=== PATIENT | female | born 1930 | race Caucasian/White ===

== ENCOUNTER 2016-06-15 18:46 | Inpatient (IN) ==
--- NOTE | 2016-06-15 18:59 | Emergency Department Note ---
START Narrative - START START: I examined this patient and my medical decision-making was reviewed with the METER READING CLERK/PA/Advanced Practice Nurse/Resident Physician. I agree with the documented findings, disposition and treatment plan as described except to the extent set forth below. ED attending note: Patient seen with emergency medicine resident Dr. Pate. We independently evaluated the patient. We independently had [id number] contact with the patient. Please see a copy of his note for details of the history and physical, evaluation, management and disposition of this emergency Department patient. Briefly: A 86-year-old female with history of right hip replacement by EMS after mechanical fall tripped over a log of table fell and hit her left side of the hip and her head. No loss of consciousness. GCS 15. Full range of motion of her neck. Has discomfort on the lateral aspect of her left thigh. Patient getting x-rays and analgesics. Disposition pending. Patient stable.
[2016-06-15] MEDS ORDERED: Acetaminophen 325 MG TABLET PO ONE (19:03)
[2016-06-15] MEDS ORDERED: *HR* HYDROcodone/Acet 5/325 mg TABLET PO ONE (20:24)
[2016-06-15] MEDS ORDERED: 0.9 % Sodium Chloride 1,000 ML IVC ONE (20:37)
--- NOTE | 2016-06-15 20:41 | Emergency Department Note ---
Disposition Clinical Impression: Closed left hip fracture Qualifiers: Encounter type: initial encounter Qualified Code(s): S72.002A - Fracture of unspecified part of neck of left femur, initial encounter for closed fracture Disposition: Admitted As Inpatient Condition: Fair Referrals: NO,PCP [Primary Care Provider] - Forms: ED Satisfaction Letter Time of Disposition: 20:51 Fall HPI - General Chief Complaint: ED Fall Stated Complaint: "fall, no loc, lt leg pain" Source: EMS Nursing Notes Reviewed: Yes Vital Signs Reviewed: Yes - History of Present Illness HPI Narrative: A 6-year-old female presents with left hip pain secondary to ground level fall was mechanical in nature for 45 minutes ago. Patient tripped on table leg and fell backwards onto her left hip. Patient denies loss of consciousness or head injury. Patient is not on anticoagulants. Patient has history of right hip replacement patient has not fallen in 2 years - Related Data Allergies Allergy/AdvReac Type Severity Reaction Status Date / Time aspirin AdvReac Rash Verified 01/26/16 15:16 All systems ED: reviewed and negative except as stated. Constitutional: Denies: fever, chills ENT ED: Denies: congestion Cardiovascular: Denies: chest pain, palpitations Respiratory: Denies: cough, dyspnea, wheezes Gastrointestinal: Denies: abdominal pain, nausea, vomiting, diarrhea Genitourinary: Denies: urgency, dysuria, frequency Musculoskeletal: Denies: back pain, neck pain Fall PMH - Past Medical History Medical history: Reports: arthritis Psychiatric history: Reports: depression - Social History Smoking Status: Former smoker Alcohol use: Reports: none Drug use: Reports: none Physical Exam Vital Signs Temperature 97.5 F L 06/15/16 18:55 Pulse Rate 70 06/15/16 18:55 Respiratory Rate 16 06/15/16 18:55 Blood Pressure 173/61 06/15/16 18:55 O2 Sat by Pulse Oximetry 92 L 06/15/16 18:55 Temperature 97.5 F L 06/15/16 18:55 Pulse Rate 74 06/15/16 19:14 Respiratory Rate 16 06/15/16 19:14 Blood Pressure 171/74 06/15/16 19:14 O2 Sat by Pulse Oximetry 95 06/15/16 19:14 Oxygen Delivery Oxygen Delivery Nasal Cannula -General Appearance: Patient is a 86-year-old female who is alert and oriented 3 and in no acute distress. Patient lying in bed comfortable. -Neurological exam: Cranial nerves II-12 intact, no focal deficits observed, strength equal 5/5 bilaterally in upper and lower extremities, - Head Head exam: atraumatic, normocephalic, normal inspection - Eye Eye exam: Present: normal appearance, PERRL, EOMI, negative for scleral icterus negative for conjunctival pallor - ENT ENT exam: normal exam, normal oropharynx, mucous membranes moist - Neck Neck exam: Present: normal inspection, full ROM, trachea midline, negative JVD - Chest Chest inspection: Present: Patient has bilateral equal rise and fall of chest wall. Non-tender to palpation. - Respiratory Respiratory exam: Clear to auscultation bilaterally without wheezes rales or rhonchi Cardiovascular Cardiovascular exam: Present: regular rate, normal rhythm, normal heart sounds, without murmurs rubs or gallops. - Abdominal Exam Abdominal exam: Present: soft, nondistended, Non-Tender light and deep palpation in all quadrants. Bowel sounds normoactive throughout all 4 quadrants. Negative for hyper or hyperresonance. - Extremities Exam Extremities exam: Patient has shortening and lateral rotation of the left extremity. Pulses intact dorsal pedal and popliteal Bilaterally tenderness to palpation anterior to the patient's hip and discomfort with movement - Back Exam Back exam: Present: normal inspection - Psychiatric Psychiatric exam: Present: normal affect, normal mood - Skin Skin exam: Present: warm, dry, intact, normal color - General Limitations: no limitations General appearance: alert Course Course Narrative: Patient seen and examined. Patient refuses pain medication other than Tylenol. 650 mg ordered - Reevaluation(s) Reevaluation #1: Patient returned from x-ray. Patient's complaining of more pain. Patient will except stronger pain medication at this time. Oxycodone 5 325 ordered Time: 19:30 - Consultations Consultation #1: Anju requests patient be admitted to medicine and he will see patient in the morning. Time: 20:30 Consultation #2: Dr. Rincon accepted for admission Time: 20:40 Vital Signs Temperature 97.5 F L 06/15/16 18:55 Pulse Rate 70 06/15/16 18:55 Respiratory Rate 16 06/15/16 18:55 Blood Pressure 173/61 06/15/16 18:55 O2 Sat by Pulse Oximetry 92 L 06/15/16 18:55 Temperature 97.5 F L 06/15/16 18:55 Pulse Rate 74 06/15/16 19:14 Respiratory Rate 16 06/15/16 19:14 Blood Pressure 171/74 06/15/16 19:14 O2 Sat by Pulse Oximetry 95 06/15/16 19:14 Oxygen Delivery Oxygen Delivery Nasal Cannula Fall - MDM Narrative Medical decision making narrative: Ms. Carvalho is an 86-year-old female who had a ground-level fall mechanical in nature secondary to tripping on the table leg. Patient's condition concerning for hip fracture. Femur X-Ray 06/15/16 19:01 IMPRESSION: Acute moderately displaced left subcapital femoral neck fracture. D/ / Romain Muller MD / Romain Muller MD Interpreting Provider: Romain Muller MD Pelvis X-Ray 06/15/16 19:01 IMPRESSION: Acute moderately displaced left subcapital femoral neck fracture. D/ / Romain Muller MD / Romain Muller MD Interpreting Provider: Romain Muller MD Patient has a hip fracture per radiology. Verified after reviewing image. Dr. Rene of orthopedics was consult sitting and he states to admit to medicine and he will see the patient in the morning. Patient is admitted to medicine and accepted by Dr. Rincon.
[2016-06-15 21:02] LABS: Basophils % 0.1 %; Eosinophils # 0.1 K/mcL (0.0-0.6); Eosinophils % 0.7 %; Hematocrit 25.6 % (35.3-44.9); Hemoglobin 8.2 g/dL (11.5-15.4); Immature Granulocytes % 0.7 % (0-4); Lymphocytes # 0.5 K/mcL (0.6-4.6); Lymphocytes % 4.2 %; Mean Corpuscular Hemoglobin 33.1 pg (28.0-33.3); Mean Corpuscular Volume 103.2 fL (83.0-100.0); Mean Platelet Volume 10.2 fL (9.4-12.4); Monocytes # 0.3 K/mcL (0.0-1.3); Monocytes % 2.7 %; Platelet Count 227 K/mcL (140-400); Red Blood Count 2.48 M/mcL (3.82-4.97); Red Cell Distribution Width 12.9 % (11.5-14.5); Segmented Neutrophils % 91.6 %
[2016-06-15 21:15] LABS: Calcium 8.8 mg/dL (8.6-10.8); Potassium 4.3 mEq/L (3.5-4.5)
[2016-06-15] MEDS ORDERED: *HR* Morphine 2 MG/ML SYRINGE IVP ONE (21:54)
[2016-06-15] MEDS ORDERED: *HR* Morphine 2 MG/ML SYRINGE IVP PRN ×2 (21:58→22:31)
[2016-06-15] MEDS ORDERED: *HR* HYDROcodone/Acet 5/325 mg TABLET PO PRN (21:58)
[2016-06-15] MEDS ORDERED: Ondansetron ODT 4 MG TAB.RAPDIS SL PRN (21:58)
[2016-06-15] MEDS ORDERED: Acetaminophen 325 MG TABLET PO PRN (21:58)
[2016-06-15] MEDS ORDERED: Naloxone 0.4 MG/ML INJ IVP PRN (21:58)
[2016-06-15] MEDS ORDERED: 0.9 % Sodium Chloride 1,000 ML IVC SCH (22:00)
[2016-06-15] MEDS ORDERED: *HR* HYDROmorphone (PF) 1 MG/ML SYRINGE IVP PRN (22:29)
--- NOTE | 2016-06-15 22:55 | Internal Med History&Physical ---
<Cammie Onofre - Last Filed: 06/15/16 22:41> Date of Encounter: 06/15/16 Time of Encounter: 22:41 Assessment and Plan (1) Closed left hip fracture Current visit: Yes Status: Acute Patient fell at home and has left hip pain, unable to walk. Xray revealed left femoral neck fracture. Dr. eRne consulted and will evaluate in the morning. NPO after midnight. Gentle fluid hydration 0.9NS at 60mL/hr EKG, echo ordered for pre-op clearance. Qualifiers: Encounter type: initial encounter Qualified Code(s): S72.002A - Fracture of unspecified part of neck of left femur, initial encounter for closed fracture (2) Hypertension Current visit: Yes Status: Acute Patient with history of hypertension. She does not know her medications or doses, but reports she took bother her morning and evening doses already today. She will have her son-in-law bring her medications in the morning. Once pain is controlled, will reassess blood pressure and assess the need for PRN blood pressure control. 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 She does not know her medications or doses, but reports she took bother morning and evening doses today and will have her son-in-law bring her medications in the morning. (4) History of ID (myocardial infarction) Current visit: Yes Status: Acute Patient reports history of ID, denies stent placement. Will get echocardiogram in the morning for pre-op evaluation (5) CKD (chronic kidney disease) Current visit: Yes Status: Acute Patient with history of CKD and appears to be at baseline with Creatinine of 1.53. Gentle fluids overnight with 0.9NS at 60mL/hr recheck labs in the morning. Qualifiers: Chronic kidney disease stage: stage 3 (moderate) Qualified Code(s): N18.3 - Chronic kidney disease, stage 3 (moderate) (6) Anemia Current visit: Yes Status: Acute Hgb 8.2, appears to be at baseline. Recheck labs in the morning. Qualifiers: Anemia type: iron deficiency Iron deficiency anemia type: unspecified iron deficiency Qualified Code(s): D50.9 - Iron deficiency anemia, unspecified (7) DVT prophylaxis Current visit: Yes Status: Acute calf-compressors Heparin 5,000u SQ BID Internal Medicine - H&P: HPI Chief complaint: Fall Admitted From: Emergency Dept Plans for Post Hospital Care: Transfer [facility] Facility History of present illness: Ms. Carvalho is a 86 year old female with hypertension, CKD, anemia, seizure disorder and history of ID, who was brought to the emergency department by the squelizabeth today haver suffering a fall at home. She reports she was in her kitchen when she tripped over the leg of the table and fell on her left side. She could not get up and she could not bear weight. Pain is described as severe and constant since her fall, somewhat relieved by pain medication. Xrays in the ED revealed a left femoral neck fracture. WBC count was mildly elevated to 12.0, likely reactive. She is anemic with Hgb of 8.2, but this is consistent with her baseline hgb. Creatinine of 1.53 also appears consistent with her baseline and consistent with her history of CKD. Orthopedic surgery was consulted and will see her tomorrow and likely proceed with surgery. On exam, patient is alert and oriented, though she is a poor historian and does not know what medications she takes. She gets her medications set up in boxes, and reports she did take her morning and evening doses today. She reports her son- in-law will bring her medications in the morning. Her left leg is shortened and externally rotated and the right hip is tender to palpation. Lungs are clear to auscultation bilaterally and heart has regular rate and rhythm. Past Med Surg Social Fam HX - Past Medical History Medical history: arthritis, hypertension, myocardial infarction, renal disease, seizures Psychiatric history: depression - Past Surgical History Surgical History: hip replacement (right hip 2014) - Social History Smoking Status: Former smoker Smokeless Tobacco Status: No Alcohol use: none Drug use: none - Family History Mother Living Status: Age at : 97 Father Living Status: Age at : 87 Cause of : aneurysm Daughter Hx Family Cancer: Yes Internal Medicine - H&P: Meds Clopidogrel [Plavix] 75 mg PO DAILY 06/15/16 [History] Allergies aspirin Adverse Reaction (Verified 01/26/16 15:16) Rash All Systems PM: A 10-system review of systems was performed and is negative for pertinent findings except as documented above in the HPI. - Constitutional Constitutional: no chills, no fever(s), no night sweats - EENT Eyes: no change in vision, no discharge, no pain, no photophobia Ears: no ear discharge, no ear pain, no tinnitus Nose, mouth and throat: no dysphagia, no nasal discharge, no neck pain, no sore throat - Cardiovascular Cardiovascular ROS IM: no chest pain, no diaphoresis, no dyspnea, no lightheadedness, no palpitations, no syncope - Respiratory Respiratory: no cough, no dyspnea, no wheezing, no excessive phlegm production - Gastrointestinal Gastrointestinal: no abdominal pain, no diarrhea, no hematemesis, no hematochezia, no melena, no nausea, no vomiting - Genitourinary Genitourinary: no change in urinary stream, no dysuria, no flank pain, no hematuria - Musculoskeletal Musculoskeletal ROS IM: limited range of motion (left hip) - Integumentary Integumentary IM: no rash, no unusual bruising - Neurological Neurological ROS: no confusion, no convulsions, no focal weakness, no numbness, no tingling, no tremor(s) - Hematologic/Lymphatic Hematologic/Lymphatic: no easy bruising - Constitutional Vitals: Temp Pulse Resp BP Pulse Ox 98.5 F 79 18 184/85 98 06/15/16 22:06 06/15/16 22:06 06/15/16 22:06 06/15/16 22:06 06/15/16 22:06 General appearance: Present: A&O X 3, no acute distress, answers questions appropriately - Head Head exam: Present: atraumatic, normocephalic - Eye Eye exam: Present: PERRL, conjuntiva pink, sclera anicteric Pupils: Present: PERRL - Neck Neck exam general surgery: Present: supple, trachea midline. Absent: lymphadenopathy - Respiratory Respiratory exam: Present: CTAB. Absent: accessory muscle use, rales, rhonchi, wheezes - Cardiovascular Cardiovascular exam: Present: RRR, +S1, +S2. Absent: diastolic murmur, gallop, rubs, systolic murmur - GI/Abdominal GI/Abdominal exam: Present: normal bowel sounds, soft, no peritoneal signs. Absent: distended, tenderness - Extremities Exam Extremities exam: Present: normal capillary refill, tenderness (left hip), warm , radial pulses palpable and symetrical. Absent: calf tenderness, cyanotic, pedal edema Additional comments: Right leg shortened and externally rotated. Normal capillary refill, neurovascularly intact. - Neurological Exam Neurological exam: Present: CN II-XII intact, oriented X3, no focal deficits. Absent: pronater drift, facial droop, speech deficit - Skin Skin exam: Present: dry, intact Internal Med - H&P Results - Labs CBC & Chem 7: 06/15/16 20:59 06/15/16 20:59 <Bela Rincon - Last Filed: 06/16/16 04:24> Date of Encounter: 06/15/16 Assessment and Plan (1) Vitamin B12 deficiency Current visit: Yes Status: Acute Pt had Vitamin B12 level of 203, on 05/27/16. I am unsure, if the pt is on replenishment (no home meds listed). Start supplements (2) Macrocytic anemia with vitamin B12 deficiency Current visit: Yes Status: Chronic Vitamin B12 supplements. Type and screen for surgery Internal Medicine - H&P: HPI History of present illness: Ms. Carvalho is a 86 year old female All Systems PM: A 10-system review of systems was performed and is negative for pertinent findings except as documented above in the HPI. - Constitutional Vitals: Temp Pulse Resp BP Pulse Ox 98.2 F 71 17 171/81 98 06/16/16 03:54 06/16/16 03:54 06/16/16 03:54 06/16/16 03:54 06/16/16 03:54 Internal Med - H&P Results - Labs CBC & Chem 7: 06/15/16 20:59 06/15/16 20:59 - Attending Attestation I examined this patient and my medical decision-making was reviewed with the APPLICATION SPEC/PA/Advanced Practice Nurse/Resident Physician. I agree with the documented findings, disposition and treatment plan as described except to the extent set forth below. I have personally evaluated the pt and discussed the details with POLICE ACADEMY PROGRAM COORDINATOR. 86 Y/F, with prior CAD / ID 2 yrs ago. CKD, vitamin B12 deificiency / macrocytic anemia. Pt had a mechanical fall in the kitchen and has severe pain in the left hip. X-ray of the pelvis showed moderately displaced subcapital femoral neck fracture. ER physician discussed with Dr. Carlton, who recommended admission to the hospitalist service. O/E: systolic murmur. Tenderness at the left hip. Assessment/ Plan: Left hip fracture: Analgesia with dilaudid. Will get echo cardiogram for presurgical eval . Ortho consult. CAD: Hold Plavix. Her home meds list is not available. If the pt is on betablockers, will need to continue. Macrocytic anemia: H&H at her recent baseline. Type and screen transfuse per ortho. I am not certain, if the pt is on Vit B12 supplements. Will give Vit B12 IM and start PO. CKD stage 3: creat at baseline.
[2016-06-15] MEDS ORDERED: Cyanocobalamin (B-12) 1,000 MCG/ML VIAL IM ONE (23:36)
[2016-06-16] MEDS: 0.9 % Sodium Chloride 1,000 ML IVC SCH ×2 (00:09→09:11)
[2016-06-16 05:18] LABS: Basophils % 0.2 %; Eosinophils % 0.1 %; Hematocrit 25.1 % (35.3-44.9); Hemoglobin 7.8 g/dL (11.5-15.4); Immature Granulocytes % 0.6 % (0-4); Lymphocytes # 0.5 K/mcL (0.6-4.6); Lymphocytes % 4.1 %; Mean Corpuscular HGB Conc 31.1 g/dL (31.6-35.5); Mean Corpuscular Hemoglobin 32.2 pg (28.0-33.3); Mean Corpuscular Volume 103.7 fL (83.0-100.0); Mean Platelet Volume 10.4 fL (9.4-12.4); Monocytes # 0.5 K/mcL (0.0-1.3); Monocytes % 3.6 %; Neutrophils # 11.6 K/mcL (1.6-8.9); Platelet Count 183 K/mcL (140-400); Red Blood Count 2.42 M/mcL (3.82-4.97); Segmented Neutrophils % 91.4 %
[2016-06-16] MEDS: *HR* Heparin 5,000 UNIT/ML VIAL SQ SCH ×2 (05:26→20:33)
[2016-06-16 05:31] LABS: Calcium 8.3 mg/dL (8.6-10.8); Potassium 3.9 mEq/L (3.5-4.5)
[2016-06-16] MEDS ORDERED: *HR* Metoprolol 5 MG/5 ML VIAL IVP ONE (05:42)
[2016-06-16] MEDS ORDERED: *HR* Promethazine 25 MG/ML VIAL IVP PRN (11:04)
[2016-06-16] MEDS ORDERED: *HR* HYDROmorphone (PF) 1 MG/ML SYRINGE IVP PRN (11:04)
--- NOTE | 2016-06-16 11:04 | Anesthesia Evaluation PreOp ---
Date of Encounter: 06/16/16 Time of Encounter: 11:03 - Past History Planned Operation: L hip hemiarthroplasty (delayed to 06/17 for transfusion Cardiac History: [place], Other (echo 2015: Impressions: LVEF 60-65%; subtle wall motion abnormality with normal systolic function. Normal left ventricular size and systolic function. There is evidence of mild diastolic dysfunction of the left ventricle. Moderately enlarged left atrial size. Normal right atrial size. Normal right ventricular size and function. Sclerotic aortic valve. Mild tricuspid regurgitation. Estimated RVSP was 31 mmHg. No pulmonary hypertension. The IVC is not dilated.) Pulmonary History: Denies Any Significant HX SAFEKEEPING CLERK History: Seizures (absence) Other Medical History: Renal (ckd) Anesthesia History: No Prior Anesthetic Complications, Past Anesthesia Alcohol Use: none Drug use: none Medications and Allergies Clopidogrel [Plavix] 75 mg PO DAILY 06/15/16 [History] Aspirin PO DAILY 06/16/16 [History] Allergies aspirin Adverse Reaction (Verified 01/26/16 15:16) Rash - Meds/Allergy Pre-op Review Medications Reviewed: Yes Allergies Reviewed: Yes Beta Blockers on Current Med List: No Anesthesia Results - Labs 06/16/16 04:45 06/16/16 04:45 - Imaging EKG: pending Anesthesia Exam Height: 1.68 Weight: 53 NPO (# of Hours): >8 Anesthesia Assess/Plan ASA Score: 3 Modified Mason Scale for Level of Consciousness: Cooperative, oriented, and tranquil Anesthetic Plan: General Monitoring Plan: Standard Monitors Recovery Plan: PACU
--- NOTE | 2016-06-16 12:07 | Orthopedic Consult Note ---
Date of Encounter: 06/16/16 Time of Encounter: 12:05 Assessment and Plan (1) Closed left hip fracture Current Visit: Yes Status: Acute The patient is a displaced left hip femoral neck fracture. Plan: Discussed with patient that she will require a left hip arthroplasty. The risks, benefits alternatives were discussed patient. The patient has a significant past history of [place],, and currently has anemia. The patient requires 2 units of packed red blood cells transfusion. An echo is also pending. Patient's surgery will be moved to tomorrow, after she has been optimized and fully cleared. Qualifiers: Encounter type: initial encounter Qualified Code(s): S72.002A - Fracture of unspecified part of neck of left femur, initial encounter for closed fracture History of Present Illness Chief complaint: Left hip pain HPI: Ms. Carvalho is a 86 year old female fell at [employer] yesterday evening, she states she lost her balance and fell over. She was brought to the emergency room, and was diagnosed with a left hip femoral neck fracture. The patient reports she has been having gait disturbance were well now. She did not get dizzy prior to her fall and no loss consciousness afterwards. The patient denies any chest pain or shortness of breath. Past Med Surg Social Fam HX - Past Medical History Medical history: arthritis, hypertension, myocardial infarction, renal disease, seizures Psychiatric history: depression - Past Surgical History Surgical History: hip replacement - Social History Smoking Status: Former smoker Smokeless Tobacco Status: No Alcohol use: none Drug use: none - Family History Mother Living Status: Age at : 97 Father Living Status: Age at : 87 Cause of : aneurysm Daughter Living Status: Still Living Hx Family Respiratory Disorders: Yes Hx Family Cancer: Yes Hx Family Neurologic Disorders: Yes Hx Family Medical Disorders: Yes Medications and Allergies Clopidogrel [Plavix] 75 mg PO DAILY 06/15/16 [History] Acetaminophen [Tylenol] 325 mg PO Q6HR PRN 06/16/16 [History] Atorvastatin Calcium 80 mg PO HS 06/16/16 [History] Carvedilol [Coreg] 6.25 mg PO BID 06/16/16 [History] Cholecalciferol (Vitamin D3) [Vitamin D] 2,000 unit PO DAILY 06/16/16 [History] Dicyclomine [Bentyl] 10 mg PO QID 06/16/16 [History] Ferrous Sulfate [Iron] 325 mg PO BID 06/16/16 [History] Fluticasone Propionate Nasal [Flonase] 1 spray NS DAILY PRN 06/16/16 [History] Lamotrigine [Lamictal] 100 mg PO BID 06/16/16 [History] Lisinopril [Lisinopril] 2.5 mg PO DAILY 06/16/16 [History] Loratadine [Allergy Relief] 10 mg PO DAILY PRN 06/16/16 [History] Paroxetine [Paxil] 20 mg PO DAILY 06/16/16 [History] Tramadol HCl [Ultram] 50 mg PO Q6H PRN 06/16/16 [History] Allergies aspirin Adverse Reaction (Verified 06/16/16 11:53) Rash All Systems Reviewed: A 10-system review of systems was performed and is negative for pertinent findings except as documented above in the HPI. Physical Exam - Constitutional Vitals: Temp Pulse Resp BP Pulse Ox 98.5 F 71 16 159/86 94 L 06/16/16 06:20 06/16/16 06:20 06/16/16 06:20 06/16/16 06:20 06/16/16 06:20 - Fracture left hip Appearance: other (Left lower extremity is shortened, she is tender at the groin area) Compartments: soft Distal extremity neurovascularly intact: Yes Proximal joint involvement: Yes Distal joint involvement: No Other injury: muscle injury: no, tendon injury: no, ligament injury: no, vascular injury: no, nerve injury: no Results - Labs Result Diagrams: 06/16/16 04:45 06/16/16 04:45 Labs: Abnormal lab results WBC 12.7 K/mcL (4.3-11.1) H 06/16/16 04:45 RBC 2.42 M/mcL (3.82-4.97) L 06/16/16 04:45 Hgb 7.8 g/dL (11.5-15.4) L 06/16/16 04:45 Hct 25.1 % (35.3-44.9) L 06/16/16 04:45 MCV 103.7 fL (83.0-100.0) H 06/16/16 04:45 MCHC 31.1 g/dL (31.6-35.5) L 06/16/16 04:45 Neutrophils # 11.6 K/mcL (1.6-8.9) H 06/16/16 04:45 Lymphocytes # 0.5 K/mcL (0.6-4.6) L 06/16/16 04:45 BUN 27 mg/dL (7-20) H 06/16/16 04:45 Creatinine 1.27 mg/dL (0.57-1.11) H 06/16/16 04:45 Est GFR ( Amer) 48 (> 60) L 06/16/16 04:45 Est GFR (Non-Af Amer) 40 (> 60) L 06/16/16 04:45 Glucose 150 mg/dL (70-99) H 06/16/16 04:45 Calcium 8.3 mg/dL (8.6-10.8) L 06/16/16 04:45 H & H 06/16/16 Range/Units 04:45 Hgb 7.8 L (11.5-15.4) g/dL Hct 25.1 L (35.3-44.9) % All other labs normal. - Diagnostic results Hip x-ray: image reviewed (Left hip displaced femoral neck fracture, right hemiarthroplasty) Consult Discharge Plan - Plan Referrals: Isrrael Quintero MD [Primary Care Provider] -
[2016-06-16] MEDS: 0.9 % Sodium Chloride 250 ML IVC PRN ×2 (12:58→18:48)
[2016-06-16 13:30] LABS: Prothrombin Time 11.3 Seconds (9.4-12.1)
[2016-06-16 13:33] LABS: Activated Partial Thrombo Time 25.5 Seconds (26.0-36.0)
--- NOTE | 2016-06-16 15:09 | ECHO - Doppler Report ---
Echocardiogram Name: Romina Carvalho Date of Study: 06/16/2016 Date: 1930 Ht: 66.0 in Medical Record#: [id number] Age: 86 Wt: 117.0 lb Gender: Female BSA: 1.59 Order #: [id number] Location: [facility] Room #: [facility] Reading Physician: Allen Murphy MD, [facility] Tv News Director: KEN ArreolaT, [facility] Ordering Physician: Cammie Onofre, FEE CLERK Primary Physician: Isrrael Quintero M.D. Indications: Preop Impressions: Normal left ventricular size and systolic function, LVEF 65%. Normal right ventricular size and function. Mildly dilated left atrium. Moderate tricuspid regurgitation. Mild-moderate pulmonary hypertension. Estimated RVSP = 49 mmHg. Left Ventricular Wall Motion: Rest Echo Findings All wall segments showed normal motion. Findings: Study Quality * Technically adequate exam. ECG Findings * Normal sinus rhythm. Left Ventricle * Normal left ventricular size and systolic function, LVEF 65%. * Normal LV wall thickness. * Indeterminate diastolic function. Right Ventricle * Normal right ventricular size and function. Left Atrium * Mildly dilated left atrium. Right Atrium * Normal right atrial size. Interatrial Septum * Mildly aneurysmal interatrial septum. Aorta * Normally sized aortic root. Pericardium * There is no pericardial effusion present. IVC * Normal IVC dimensions and inspiratory collapse. Aortic Valve * Trileaflet aortic valve. * Moderately sclerotic aortic valve leaflets. * No aortic stenosis. * No aortic regurgitation. Mitral Valve * Mild mitral annular calcification * No mitral stenosis. * Trace mitral regurgitation. Tricuspid Valve * Normal tricuspid valve structure. * No tricuspid stenosis. * Moderate tricuspid regurgitation. * Mild-moderate pulmonary hypertension. Estimated RVSP = 49 mmHg. Pulmonic Valve * Pulmonic valve not well visualized. * No pulmonic stenosis. * Trace pulmonic regurgitation. History Hypertension Hypercholesteremia 11/18/2014 a Previous Echo was performed. Measurements: BP: 159/ 86 2D Normal Values RVIDd: 2.50 cm IVSd: .90 cm 0.6 - 1.0 cm LVIDd: 3.80 cm 3.7 - 5.6 cm LVPWd: 1.00 cm 0.6 - 1.1 cm LVIDs: 2.50 cm 1.5 - 3.6 cm AO: 3.00 cm < 4.0 cm %FS: 34.20 cm >25 % LA volume: 55 Mitral Valve Peak E:1.05 m/sec Peak A:1.00 m/sec E/A Ratio:1.1 Tricuspid Valve TV Regurg Peak Grad: 46.00mmHg TV Regurg Peak Rey: 3.39m/sec Updated by Allen Murphy MD, [facility] on 06/16/2016 3:03:41 PM electronically signed on 06/16/2016 3:04:40 PM with status of Final Wall Motion Narayan: 1=Normal, 2=Hypokinesis, 3=Akinesis, 4=Dyskinesis, 5=Aneurysmal, 6=Hyperkinetic, X=Not Visualized (Blank)=Missing
--- NOTE | 2016-06-16 16:43 | Internal Med Progress Note ---
Date of Encounter: 06/16/16 Time of Encounter: 14:00 - Assessment and plan (1) Closed left hip fracture Current Visit: Yes Status: Acute Assessment and plan: X-ray of the left hip revealed left femoral neck fracture. Orthopedic service is following. Plan for surgical intervention tomorrow. Continue IV fluid hydration, pain control with opiates. Qualifiers: Encounter type: initial encounter Qualified Code(s): S72.002A - Fracture of unspecified part of neck of left femur, initial encounter for closed fracture (2) Acute blood loss anemia Current Visit: Yes Status: Acute Assessment and plan: Hemoglobin is 7.8. Likely secondary to blood loss from hip fracture. Transfuse 2 units of packed red blood cells. No external bleeding. Close monitoring. Hemodynamically stable. (3) CKD (chronic kidney disease) Current Visit: Yes Status: Acute Assessment and plan: CKD 3. At baseline. Continue to monitor. Avoid nephrotoxins as possible. Qualifiers: Chronic kidney disease stage: stage 3 (moderate) Qualified Code(s): N18.3 - Chronic kidney disease, stage 3 (moderate) (4) Hypertension Current Visit: Yes Status: Acute Assessment and plan: Control. Holding home dose of lisinopril. Qualifiers: Hypertension type: essential hypertension Qualified Code(s): I10 - Essential (primary) hypertension (5) Macrocytic anemia with vitamin B12 deficiency Current Visit: Yes Status: Chronic Assessment and plan: Continue B12 supplementation. (6) Seizure disorder Current Visit: Yes Status: Acute Assessment and plan: Continue home dose of Lamictal. (7) Suicidal thoughts Current Visit: Yes Status: Acute Assessment and plan: And clear if patient is 19 having suicidal thoughts. Will consult psychiatry service for further evaluation. sitter at the bedside - Subjective Interval history: Patient reports left hip pain, that is controlled with medications. Patient answered just to the question. She has thoughts of harming herself. She is states her son lives in [place], her and her daughter has cancer. Patient is confused about her thoughts, she is thinking that she might be having suicidal thoughts because she fell at home and she never fell in the past. - Constitutional Vitals: Temp Pulse Resp BP Pulse Ox 97.7 F 73 15 147/66 99 06/16/16 15:21 06/16/16 15:21 06/16/16 15:21 06/16/16 15:21 06/16/16 13:04 General appearance: Present: A&O X 3, pleasant, no acute distress, answers questions appropriately - Eye Eye exam: Present: PERRL, sclera anicteric - Neck Neck exam general surgery: Present: lymphadenopathy. Absent: supple, trachea midline - Respiratory Respiratory exam: Present: CTAB - Cardiovascular Cardiovascular exam: Present: RRR - GI/Abdominal GI/Abdominal exam: Present: normal bowel sounds, soft. Absent: distended, tenderness - Extremities Exam Extremities exam: Absent: pedal edema - Neurological Exam Neurological exam: Present: alert, oriented X3. Absent: facial droop, speech deficit Internal Medicine: Result - Labs CBC & Chem 7: 06/16/16 04:45 06/16/16 04:45 Labs: Short CBC 06/16/16 Range/Units 04:45 WBC 12.7 H (4.3-11.1) K/mcL Hgb 7.8 L (11.5-15.4) g/dL Hct 25.1 L (35.3-44.9) % Plt Count 183 (140-400) K/mcL Neutrophils # 11.6 H (1.6-8.9) K/mcL BMP 06/16/16 04:45 Sodium 137 Potassium 3.9 Chloride 105 Carbon Dioxide 23 BUN 27 H Creatinine 1.27 H Glucose 150 H Calcium 8.3 L - ABG Interpretation ABG results: PT/INR, D-dimer PT 11.3 Seconds (9.4-12.1) 06/16/16 13:15 - VTE Documentation of Mechanical Device: Intermittent pneumatic compression device Consult Discharge Plan - Plan Referrals: Isrrael Quintero MD [Primary Care Provider] -
[2016-06-16] MEDS ORDERED: Fluticasone Propionate Nasal 50 MCG/SPRAY BOTTLE NS PRN (16:53)
[2016-06-16] MEDS: lamoTRIgine 100 MG TABLET PO SCH (20:33)
[2016-06-17 00:47] LABS: Basophils % 0.1 %; Eosinophils # 0.1 K/mcL (0.0-0.6); Eosinophils % 1.2 %; Hematocrit 31.2 % (35.3-44.9); Hemoglobin 10.4 g/dL (11.5-15.4); Immature Granulocytes % 0.4 % (0-4); Immature Platelets 3.1 % (1.1-6.1); Lymphocytes # 0.7 K/mcL (0.6-4.6); Lymphocytes % 6.8 %; Mean Corpuscular HGB Conc 33.3 g/dL (31.6-35.5); Mean Platelet Volume 9.9 fL (9.4-12.4); Monocytes # 0.6 K/mcL (0.0-1.3); Monocytes % 5.7 %; Neutrophils # 8.7 K/mcL (1.6-8.9); Platelet Count 161 K/mcL (140-400); Red Blood Count 3.25 M/mcL (3.82-4.97); Red Cell Distribution Width 15.4 % (11.5-14.5); Segmented Neutrophils % 85.8 %
[2016-06-17 01:44] LABS: Calcium 8.2 mg/dL (8.6-10.8); Potassium 3.8 mEq/L (3.5-4.5)
[2016-06-17] MEDS: *HR* Heparin 5,000 UNIT/ML VIAL SQ SCH (05:30)
[2016-06-17] MEDS: 0.9 % Sodium Chloride 1,000 ML IVC SCH (05:31)
[2016-06-17] MEDS: lamoTRIgine 100 MG TABLET PO SCH (08:18)
[2016-06-17] MEDS ORDERED: Cyanocobalamin (B-12) 1,000 MCG TABLET PO SCH (09:00)
--- NOTE | 2016-06-17 11:17 | Electrocardiograph Report ---
[facility] Test Date: 2016-06-15 Pat Name: Romina Carvalho Department: 114 Room: [facility] Gender: F Layer Out Plate Glass: [id number] : 1930 Requested By: Cammie Onofre Order Number: [id number] Reading MD: Chris Subramanian MD Measurements Intervals [place] Rate: 77 P: 76 VT: 173 QRS: 66 QRSD: 85 T: 55 QT: 374 QTc: 406 Interpretive Statements SINUS RHYTHM WITH OCCASIONAL VENTRICULAR PREMATURE COMPLEXES Electronically Signed On 06-17-16 11:16:02 EST by Chris Subramanian MD
--- NOTE | 2016-06-17 11:48 | Consult Note ---
Date of Encounter: 06/16/16 Time of Encounter: 17:15 History of Present Illness Requesting Physician: Palma Gabriel Reason for consult: Sucidal Thoughts History of present illness: Ms. Carvalho is a 86 year old female who was admitted onto [facility] after falling and sustaining a femoral fracture. I went to the unit and spoke to nursing and to Dr. Gabriel. Patient is scheduled for surgery tomorrow and is being given Morphine for pain control. She is currently taking Paxil and Trileptal that is prescribed to her on an outpatient basis for mental health reasons. It was reported that she is under a great deal of life stress currently with an ailing daughter and with her own medical issues. She made passive verbalizes of suicide and is currently on a 1:1. That being said, and with her pending surgery, she is not going to be admitted to 1A any time in the 24-48 hours; pending surgery tomorrow and post op recovery. I discussed this with Dr. Gabriel, and that she is on Morphine and has a 1:1. We will follow up and check in on her recovery and meet with her when she is not sedated from the Narcotics being given to her for pain management, when she is better able to verbalize what she is feeling and the potential need for augmentation of mediations or follow up post surgical care with mental health. She will remain on a 1:1 throughout tonight until her surgery. Dr. Gabriel verbalized understanding. CC: Palma Gabriel Past Med Surg Social Fam HX - Past Medical History Medical history: arthritis, hypertension, myocardial infarction, renal disease, seizures - Past Surgical History Surgical History: hip replacement - Social History Smoking Status: Former smoker Smokeless Tobacco Status: No Alcohol use: none Drug use: none - Family History Mother Living Status: Age at : 97 Father Living Status: Age at : 87 Cause of : aneurysm Daughter Living Status: Still Living Hx Family Respiratory Disorders: Yes Hx Family Cancer: Yes Hx Family Neurologic Disorders: Yes Hx Family Medical Disorders: Yes Medications & Allergies Clopidogrel [Plavix] 75 mg PO DAILY 06/15/16 [History] Acetaminophen [Tylenol] 325 mg PO Q6HR PRN 06/16/16 [History] Atorvastatin Calcium 80 mg PO HS 06/16/16 [History] Carvedilol [Coreg] 6.25 mg PO BID 06/16/16 [History] Cholecalciferol (Vitamin D3) [Vitamin D] 2,000 unit PO DAILY 06/16/16 [History] Dicyclomine [Bentyl] 10 mg PO QID 06/16/16 [History] Ferrous Sulfate [Iron] 325 mg PO BID 06/16/16 [History] Fluticasone Propionate Nasal [Flonase] 1 spray NS DAILY PRN 06/16/16 [History] Lamotrigine [Lamictal] 100 mg PO BID 06/16/16 [History] Lisinopril [Lisinopril] 2.5 mg PO DAILY 06/16/16 [History] Loratadine [Allergy Relief] 10 mg PO DAILY PRN 06/16/16 [History] Paroxetine [Paxil] 20 mg PO DAILY 06/16/16 [History] Tramadol HCl [Ultram] 50 mg PO Q6H PRN 06/16/16 [History] Allergies aspirin Adverse Reaction (Verified 06/16/16 11:53) Rash Results - Vital Signs Vital signs: Temp Pulse Resp BP Pulse Ox 98.0 F 68 16 150/72 100 06/17/16 11:03 06/17/16 11:03 06/17/16 11:03 06/17/16 11:03 06/17/16 11:03 - Labs Labs: Laboratory Last Values WBC 10.1 K/mcL (4.3-11.1) 06/17/16 00:38 RBC 3.25 M/mcL (3.82-4.97) L 06/17/16 00:38 Hgb 10.4 g/dL (11.5-15.4) L D 06/17/16 00:38 Hct 31.2 % (35.3-44.9) L 06/17/16 00:38 MCV 96.0 fL (83.0-100.0) D 06/17/16 00:38 MCH 32.0 pg (28.0-33.3) 06/17/16 00:38 MCHC 33.3 g/dL (31.6-35.5) 06/17/16 00:38 RDW 15.4 % (11.5-14.5) H 06/17/16 00:38 Plt Count 161 K/mcL (140-400) 06/17/16 00:38 MPV 9.9 fL (9.4-12.4) 06/17/16 00:38 Immature Gran % 0.4 % (0-4) 06/17/16 00:38 Seg Neutrophils % 85.8 % 06/17/16 00:38 Lymphocytes % 6.8 % 06/17/16 00:38 Monocytes % 5.7 % 06/17/16 00:38 Eosinophils % 1.2 % 06/17/16 00:38 Basophils % 0.1 % 06/17/16 00:38 Neutrophils # 8.7 K/mcL (1.6-8.9) 06/17/16 00:38 Lymphocytes # 0.7 K/mcL (0.6-4.6) 06/17/16 00:38 Monocytes # 0.6 K/mcL (0.0-1.3) 06/17/16 00:38 Eosinophils # 0.1 K/mcL (0.0-0.6) 06/17/16 00:38 Basophils # 0.0 K/mcL (0.0-0.2) 06/17/16 00:38 Immature Plt Fraction 3.1 % (1.1-6.1) 06/17/16 00:38 PT 11.3 Seconds (9.4-12.1) 06/16/16 13:15 INR 1.0 06/16/16 13:15 APTT 25.5 Seconds (26.0-36.0) L 06/16/16 13:15 Sodium 133 mEq/L (136-145) L 06/17/16 00:38 Potassium 3.8 mEq/L (3.5-4.5) 06/17/16 00:38 Chloride 103 mEq/L (98-109) 06/17/16 00:38 Carbon Dioxide 21 mEq/L (19-29) 06/17/16 00:38 BUN 16 mg/dL (7-20) D 06/17/16 00:38 Creatinine 1.09 mg/dL (0.57-1.11) 06/17/16 00:38 Est GFR ( Amer) 58 (> 60) L 06/17/16 00:38 Est GFR (Non-Af Amer) 47 (> 60) L 06/17/16 00:38 BUN/Creatinine Ratio 15 (6-26) 06/17/16 00:38 Glucose 123 mg/dL (70-99) H 06/17/16 00:38 Calculated Osmolality 279 (280-300) L 06/17/16 00:38 Calcium 8.2 mg/dL (8.6-10.8) L 06/17/16 00:38 Blood Type A POSITIVE 06/16/16 04:45 Antibody Screen NEGATIVE 06/16/16 04:45 Crossmatch See Detail 06/16/16 04:45 Consult Discharge Plan - Plan Referrals: Isrrael Quintero MD [Primary Care Provider] -
--- NOTE | 2016-06-17 15:34 | Internal Med Progress Note ---
Date of Encounter: 06/17/16 Time of Encounter: 14:45 - Assessment and plan (1) Closed left hip fracture Current Visit: Yes Status: Acute Assessment and plan: X-ray of the left hip revealed left femoral neck fracture. Orthopedic service is following. Plan for surgical intervention tomorrow. Continue IV fluid hydration, pain control with opiates. Qualifiers: Encounter type: initial encounter Qualified Code(s): S72.002A - Fracture of unspecified part of neck of left femur, initial encounter for closed fracture (2) Acute blood loss anemia Current Visit: Yes Status: Acute Assessment and plan: Hemoglobin is 7.8. Likely secondary to blood loss from hip fracture. 06/16: Transfused 2 units of packed red blood cells. Hemoglobin is 10.4. No external bleeding. Close monitoring. Hemodynamically stable. (3) CKD (chronic kidney disease) Current Visit: Yes Status: Acute Assessment and plan: CKD 3. At baseline. Continue to monitor. Avoid nephrotoxins as possible. Qualifiers: Chronic kidney disease stage: stage 3 (moderate) Qualified Code(s): N18.3 - Chronic kidney disease, stage 3 (moderate) (4) Hypertension Current Visit: Yes Status: Acute Assessment and plan: Control. Holding home dose of lisinopril. Qualifiers: Hypertension type: essential hypertension Qualified Code(s): I10 - Essential (primary) hypertension (5) Macrocytic anemia with vitamin B12 deficiency Current Visit: Yes Status: Chronic Assessment and plan: Continue B12 supplementation. (6) Seizure disorder Current Visit: Yes Status: Acute Assessment and plan: Continue home dose of Lamictal. (7) Suicidal thoughts Current Visit: Yes Status: Acute Assessment and plan: Patient takes Paxil at home. Patient made comments of suicidal thoughts. sitter at the bedside. Psychiatry team is following. - Subjective Interval history: Patient has no complaints. - Constitutional Vitals: Temp Pulse Resp BP Pulse Ox 98.3 F 64 16 116/75 93 L 06/17/16 15:09 06/17/16 15:09 06/17/16 15:09 06/17/16 15:09 06/17/16 15:09 General appearance: Present: cooperative, A&O X 3, no acute distress, answers questions appropriately - Eye Eye exam: Present: PERRL, sclera anicteric - Neck Neck exam general surgery: Present: supple, trachea midline. Absent: lymphadenopathy - Respiratory Respiratory exam: Present: CTAB - Cardiovascular Cardiovascular exam: Present: RRR - GI/Abdominal GI/Abdominal exam: Present: normal bowel sounds, soft. Absent: distended, tenderness - Extremities Exam Extremities exam: Absent: pedal edema - Back Exam Back exam: Absent: CVA tenderness (L), CVA tenderness (R) - Neurological Exam Neurological exam: Present: alert, oriented X3. Absent: facial droop, speech deficit - Skin Skin exam: Absent: rash Internal Medicine: Result - Labs CBC & Chem 7: 06/17/16 00:38 06/17/16 00:38 Labs: Short CBC 06/17/16 Range/Units 00:38 WBC 10.1 (4.3-11.1) K/mcL Hgb 10.4 L D (11.5-15.4) g/dL Hct 31.2 L (35.3-44.9) % Plt Count 161 (140-400) K/mcL Neutrophils # 8.7 (1.6-8.9) K/mcL BMP 06/17/16 00:38 Sodium 133 L Potassium 3.8 Chloride 103 Carbon Dioxide 21 BUN 16 D Creatinine 1.09 Glucose 123 H Calcium 8.2 L - ABG Interpretation ABG results: PT/INR, D-dimer PT 11.3 Seconds (9.4-12.1) 06/16/16 13:15 - VTE Documentation of Mechanical Device: Intermittent pneumatic compression device Consult Discharge Plan - Plan Referrals: Isrrael Quintero MD [Primary Care Provider] -
--- NOTE | 2016-06-17 16:35 | Anesthesia Evaluation PreOp ---
Date of Encounter: 06/17/16 Time of Encounter: 16:32 - Past History Planned Operation: Left Hip Hemiarthroplasty Cardiac History: VT Pulmonary History: Denies Any Significant HX LANE ATTENDANT History: Seizures (absence) Other Medical History: Renal (CRD) Anesthesia History: No Prior Anesthetic Complications, Past Anesthesia (Cyst on R. Mandible) : No Alcohol Use: none Drug use: none Medications and Allergies Clopidogrel [Plavix] 75 mg PO DAILY 06/15/16 [History] Acetaminophen [Tylenol] 325 mg PO Q6HR PRN 06/16/16 [History] Atorvastatin Calcium 80 mg PO HS 06/16/16 [History] Carvedilol [Coreg] 6.25 mg PO BID 06/16/16 [History] Cholecalciferol (Vitamin D3) [Vitamin D] 2,000 unit PO DAILY 06/16/16 [History] Dicyclomine [Bentyl] 10 mg PO QID 06/16/16 [History] Ferrous Sulfate [Iron] 325 mg PO BID 06/16/16 [History] Fluticasone Propionate Nasal [Flonase] 1 spray NS DAILY PRN 06/16/16 [History] Lamotrigine [Lamictal] 100 mg PO BID 06/16/16 [History] Lisinopril [Lisinopril] 2.5 mg PO DAILY 06/16/16 [History] Loratadine [Allergy Relief] 10 mg PO DAILY PRN 06/16/16 [History] Paroxetine [Paxil] 20 mg PO DAILY 06/16/16 [History] Tramadol HCl [Ultram] 50 mg PO Q6H PRN 06/16/16 [History] Allergies aspirin Adverse Reaction (Verified 06/16/16 11:53) Rash - Meds/Allergy Pre-op Review Medications Reviewed: Yes Allergies Reviewed: Yes Beta Blockers on Current Med List: No Anesthesia Results - Labs 06/17/16 00:38 06/17/16 00:38 Echo 06/16/16 EF-65% Mild-Mod Phtn Mild-mod Valvular regurg. No stenotic valves - Imaging EKG: image reviewed (SR occ pVC's) Anesthesia Exam O2 Sat O2 Sat by Pulse Oximetry 97 O2 Sat by Pulse Oximetry 93 O2 Sat by Pulse Oximetry 100 O2 Sat by Pulse Oximetry 97 O2 Sat by Pulse Oximetry 98 O2 Sat by Pulse Oximetry 97 O2 Sat by Pulse Oximetry 97 O2 Sat by Pulse Oximetry 100 O2 Sat by Pulse Oximetry 99 Vital Signs Temp Pulse Resp BP Pulse Ox 97.5 F L 70 16 173/61 92 L 06/15/16 18:55 06/15/16 18:55 06/15/16 18:55 06/15/16 18:55 06/15/16 18:55 Vital Signs/O2 Sat, Most Current Temp Pulse Resp BP Pulse Ox 98.1 F 70 14 158/71 97 06/17/16 15:54 06/17/16 15:54 06/17/16 15:54 06/17/16 15:54 06/17/16 15:54 Height: 5'6'' Weight: 117# NPO (# of Hours): > 8 hrs Pain Scale: 0 Pain Scale Used: Numeric (1 - 10) - HEENT Pupil (Motor): Pupils equal, EOMI Mallampati: II Teeth: Edentulous Oral Opening: Greater than 3 - LANE ATTENDANT LOC: Oriented LANE ATTENDANT Motor: Normal RUE, Normal LUE, Normal RLE, Normal LLE, Normal Face LANE ATTENDANT Sensory: Normal: RUE, LUE, RLE, LLE, Face - Cardiac Rhythm: Regular Murmur: None JVD: No Carotid Bruit: No - Pulmonary Breath Sounds: bilateral Clear Respiratory Effort: Symmetrical Anesthesia Assess/Plan ASA Score: 3 Modified Altaf Scale for Level of Consciousness: Cooperative, oriented, and tranquil Anesthetic Plan: General, Regional Monitoring Plan: Standard Monitors Recovery Plan: PACU
[2016-06-17] MEDS ORDERED: *HR* FentaNYL (PF) 100 MCG/2 ML VIAL ONE (17:15)
[2016-06-17] MEDS ORDERED: Lidocaine -MPF 2% 2 ML VIAL ONE ×2 (17:15)
[2016-06-17] MEDS ORDERED: *HR* Propofol 200 MG/20 ML VIAL IVP ONE (17:15)
[2016-06-17] MEDS ORDERED: *HR* Succinylcholine 200 MG/10 ML VIAL IVP ONE (17:16)
[2016-06-17] MEDS ORDERED: Ondansetron 4 MG/2 ML VIAL ONE (17:41)
[2016-06-17] MEDS ORDERED: *HR* HYDROmorphone (PF) 1 MG/ML SYRINGE IVP PRN ×2 (18:01→21:27)
[2016-06-17] MEDS ORDERED: Ondansetron 4 MG/2 ML VIAL IVP PRN ×2 (18:01→21:27)
[2016-06-17] MEDS ORDERED: *HR* Labetalol 100 MG/20 ML MDV IVP PRN (18:01)
[2016-06-17] MEDS ORDERED: Acetaminophen IV 1,000 MG/100 ML INFUS..BTL ONE (19:39)
[2016-06-17] MEDS ORDERED: Dexamethasone 4 MG/ML VIAL ONE (19:45)
[2016-06-17] MEDS ORDERED: *HR* HYDROmorphone 2 MG/ML SYRINGE ONE (19:45)
--- NOTE | 2016-06-17 21:00 | Anesthesia Evaluation Post Op ---
Date of Encounter: 06/17/16 Time of Encounter: 21:00 - Vital Signs Vital Signs: Vital Signs/O2 Sat/Glucose, Most Current Temp Pulse Resp BP Pulse Ox 06/17/16 20:49 81 16 126/56 95 06/17/16 20:39 87 16 125/66 95 06/17/16 20:29 97.2 F L 86 16 122/76 96 06/17/16 20:19 86 16 148/75 94 L 06/17/16 20:09 87 16 172/89 93 L 06/17/16 19:59 98.8 F 79 18 180/76 100 - Lungs Lungs: Clear Ascult./Percussion - Airway Airway: Non-obstructed - Cardiovascular Regular Rate - Mental Status Mental Status: Alert & Oriented, Answers Appropriately - Pain Pain Scale: 0 - Nausea Vomiting Nausea Vomiting: Not Present - Hydration Hydration: NPO, Dc catheter Notes: 06/17/16 20:59 pleasantly confused as per baseline. deies pain. lungs clear. no apparent distress discharge to floor. - Discharge PostOp Status: Transfer Patient to floor
[2016-06-17] MEDS ORDERED: Ondansetron ODT 4 MG TAB.RAPDIS SL PRN (21:27)
[2016-06-17] MEDS ORDERED: Temazepam 15 MG CAPSULE PO PRN (21:27)
[2016-06-17] MEDS ORDERED: *HR* OxyCODONE Immed Rel 5 MG TABLET PO PRN (21:27)
[2016-06-17] MEDS ORDERED: MOM Conc 10 ML UD.LIQ PO PRN (21:27)
[2016-06-17] MEDS ORDERED: Naloxone 0.4 MG/ML INJ IVP PRN ×2 (21:27)
[2016-06-17] MEDS ORDERED: D5% in 0.45% NACL 1,000 ML IVC SCH (21:27)
[2016-06-17] MEDS ORDERED: *HR* Morphine 2 MG/ML SYRINGE IVP PRN (21:27)
[2016-06-17] MEDS ORDERED: Sennosides 8.6 MG TABLET PO PRN (21:27)
[2016-06-17] MEDS ORDERED: Fluticasone Propionate Nasal 50 MCG/SPRAY BOTTLE NS PRN (21:27)
[2016-06-17] MEDS: *HR* Enoxaparin 30 MG/0.3 ML SYRINGE SQ SCH (21:49)
[2016-06-17] MEDS: ceFAZolin 2,000 MG in D5% in Water 100 ML IVPB SCH (23:06)
[2016-06-18 05:22] LABS: Hematocrit 27.2 % (35.3-44.9); Hemoglobin 8.8 g/dL (11.5-15.4)
[2016-06-18] MEDS: *HR* Enoxaparin 30 MG/0.3 ML SYRINGE SQ SCH (05:25)
[2016-06-18 05:35] LABS: Calcium 7.9 mg/dL (8.6-10.8); Potassium 3.9 mEq/L (3.5-4.5)
[2016-06-18] MEDS: Ascorbic Acid 500 MG TABLET PO SCH ×2 (07:58→18:22)
[2016-06-18] MEDS: Multivit/Ca/Min/Fe/FA 1 TAB TABLET PO SCH (07:58)
[2016-06-18] MEDS: lamoTRIgine 100 MG TABLET PO SCH ×2 (07:58→20:58)
[2016-06-18] MEDS: Cyanocobalamin (B-12) 1,000 MCG TABLET PO SCH (07:58)
[2016-06-18] MEDS: Acetaminophen 325 MG TABLET PO PRN (07:59)
[2016-06-18] MEDS: ceFAZolin 2,000 MG in D5% in Water 100 ML IVPB SCH (09:07)
--- NOTE | 2016-06-18 09:48 | Internal Med Progress Note ---
Date of Encounter: 06/18/16 Time of Encounter: 09:45 - Assessment and plan (1) Closed left hip fracture Current Visit: Yes Status: Acute Assessment and plan: Status post surgery with left hip arthroplasty. Awaiting physical therapy today. Pain is well controlled. Moderate risk for complications Qualifiers: Encounter type: initial encounter Qualified Code(s): S72.002A - Fracture of unspecified part of neck of left femur, initial encounter for closed fracture (2) Acute blood loss anemia Current Visit: Yes Status: Acute Assessment and plan: Hemoglobin 8.8 today. Likely is from postsurgical losses. We will continue to monitor blood count and transfuse if hemoglobin level drops further down. (3) CKD (chronic kidney disease) Current Visit: Yes Status: Chronic Assessment and plan: Chronic kidney disease stage III. Creatinine slightly elevated today but at baseline. Qualifiers: Chronic kidney disease stage: stage 3 (moderate) Qualified Code(s): N18.3 - Chronic kidney disease, stage 3 (moderate) (4) Hypertension Current Visit: Yes Status: Acute Assessment and plan: Well-controlled Qualifiers: Hypertension type: essential hypertension Qualified Code(s): I10 - Essential (primary) hypertension (5) Seizure disorder Current Visit: Yes Status: Chronic Assessment and plan: On Lamictal. (6) Suicidal thoughts Current Visit: Yes Status: Acute Assessment and plan: Evaluated by psychiatry. Recommend one-to-one sitter For now. Will continue to follow recommendations. (7) Macrocytic anemia with vitamin B12 deficiency Current Visit: Yes Status: Chronic Assessment and plan: On supplemental therapy. - Subjective Interval history: Patient underwent surgery yesterday. Doing well. Says her pain in her left leg is about 3-4 out of 10 in severity. Denies any other complaints at this time. No nausea or vomiting. - Constitutional Vitals: Temp Pulse Resp BP Pulse Ox 98.5 F 91 13 131/66 99 06/18/16 03:05 06/18/16 03:05 06/18/16 03:05 06/18/16 03:05 06/18/16 03:05 General appearance: Present: cooperative, A&O X 3, no acute distress, answers questions appropriately - Respiratory Respiratory exam: Present: CTAB. Absent: accessory muscle use, rales, rhonchi, wheezes - Cardiovascular Cardiovascular exam: Present: RRR, +S1, +S2. Absent: diastolic murmur, gallop, rubs, systolic murmur - Extremities Exam Extremities exam: Present: warm, radial pulses palpable and symetrical. Absent : calf tenderness, cyanotic, pedal edema Additional comments: Decreased range of motion at left hip and knee - Neurological Exam Neurological exam: Present: CN II-XII intact, oriented X3, no focal deficits. Absent: facial droop, speech deficit - Psychiatric Psychiatric exam: Present: normal affect, normal mood - Skin Skin exam: Present: dry, intact Internal Medicine: Result - Labs CBC & Chem 7: 06/18/16 04:50 06/18/16 04:50 Labs: Short CBC 06/18/16 Range/Units 04:50 Hgb 8.8 L D (11.5-15.4) g/dL Hct 27.2 L (35.3-44.9) % BMP 06/18/16 04:50 Sodium 134 L Potassium 3.9 Chloride 102 Carbon Dioxide 22 BUN 18 Creatinine 1.34 H Glucose 135 H Calcium 7.9 L - ABG Interpretation ABG results: PT/INR, D-dimer PT 11.3 Seconds (9.4-12.1) 06/16/16 13:15 - Impressions Impressions Hip X-Ray 06/17/16 19:48 IMPRESSION: 1. Left hip arthroplasty with no immediate complications. D/ / Marck Bazan MD / Marck Bazan MD Interpreting Provider: Marck Bazan MD - VTE Documentation of Mechanical Device: Intermittent pneumatic compression device Consult Discharge Plan - Plan Referrals: Isrrael Quintero MD [Primary Care Provider] - - Attending Attestation This document has been at least partially created by [employer] recognition technology by Dr. Parks. Errors in grammar, wording or other phrases may exist. If errors are found after the documentation is signed, they will be addressed individually in the addendum section of this document when appropriate.
--- NOTE | 2016-06-18 13:09 | Orthopedics Progress Note ---
Date of Encounter: 06/18/16 Time of Encounter: 12:45 - Assessment and Plan (1) Closed left hip fracture Current Visit: Yes Status: Acute Dressings c/d/i. Changed dressings tomorrow. Continue pain control per hospitalist. Continue therapy, WBAT. Follow hip precautions. Will f/up with Starr Alcantara PA-C in [facility] in 2 weeks. Qualifiers: Encounter type: initial encounter Qualified Code(s): S72.002A - Fracture of unspecified part of neck of left femur, initial encounter for closed fracture Subjective Principal diagnosis: POD#1 S/P - left hip arthroplasty. Interval history: Patient doing well today with no complaints. Sitting in chair bedside eating lunch. States she has very little pain. Denies calf pain. Objective Vital signs: Vital Signs Temp Pulse Resp BP Pulse Ox 06/18/16 11:57 80 14 115/67 06/18/16 10:20 80 14 115/67 06/18/16 10:15 87 13 90/47 06/18/16 03:05 98.5 F 91 13 131/66 99 06/18/16 00:31 98.3 F 71 13 107/51 100 06/17/16 23:35 97.7 F 79 12 90/51 100 06/17/16 23:17 107/54 06/17/16 22:30 97.7 F 74 17 92/49 100 06/17/16 22:00 97.3 F L 79 11 92/50 96 06/17/16 21:04 86 16 122/60 92 L 06/17/16 20:59 97.4 F L 88 16 129/65 94 L 06/17/16 20:49 81 16 126/56 95 06/17/16 20:39 87 16 125/66 95 06/17/16 20:29 97.2 F L 86 16 122/76 96 06/17/16 20:19 86 16 148/75 94 L 06/17/16 20:09 87 16 172/89 93 L 06/17/16 19:59 98.8 F 79 18 180/76 100 06/17/16 15:54 98.1 F 70 14 158/71 97 06/17/16 15:09 98.3 F 64 16 116/75 93 L Intake and Output 06/17/16 06/18/16 06/18/16 23:59 07:59 15:59 Intake Total 100 / 100 Output Total 950 / 950 325 / 325 Balance -950 / -950 -225 / -225 Intake: IV Fluids 100 / 100 Ancef 2,000 MG In 100 / 100 Dextrose 5% 100 ML @ 200 mls/hr IVPB Q8HR [facility] Rx#: [id number] Output: Estimated Blood Loss 200 / 200 Urine Amount (Catheter) 150 / 150 Catheter 600 / 600 325 / 325 Incision: clean and dry (dressings c/d/i, no calf pain, good dorsiflexion of foot) - Labs CBC & BMP: 06/18/16 04:50 06/18/16 04:50 Labs: Abnormal lab results RBC 3.25 M/mcL (3.82-4.97) L 06/17/16 00:38 Hgb 8.8 g/dL (11.5-15.4) L D 06/18/16 04:50 Hct 27.2 % (35.3-44.9) L 06/18/16 04:50 RDW 15.4 % (11.5-14.5) H 06/17/16 00:38 APTT 25.5 Seconds (26.0-36.0) L 06/16/16 13:15 Sodium 134 mEq/L (136-145) L 06/18/16 04:50 Creatinine 1.34 mg/dL (0.57-1.11) H 06/18/16 04:50 Est GFR ( Amer) 45 (> 60) L 06/18/16 04:50 Est GFR (Non-Af Amer) 37 (> 60) L 06/18/16 04:50 Glucose 135 mg/dL (70-99) H 06/18/16 04:50 Calcium 7.9 mg/dL (8.6-10.8) L 06/18/16 04:50 - VTE Documentation of Mechanical Device: Intermittent pneumatic compression device Consult Discharge Plan - Plan Referrals: Isrrael Quintero MD [Primary Care Provider] -
--- NOTE | 2016-06-18 13:53 | Operative Note ---
Date of procedure: 06/17/16 Pre-op diagnosis: Left hip femoral neck fracture, displaced Post-op diagnosis: same Procedure: Left hip hemiarthroplasty, cemented Implants: Biomet echo hemiarthroplasty system Anesthesia: ROBERTA Surgeon: Get Rene Estimated blood loss (cc): 200 Specimen: To pathology Condition: stable Disposition: PACU Procedure in Detail: The patient received IV antibiotics in the holding area. She was brought to the operating room, sign in was performed. The patient underwent general anesthesia on the hospital bed. She was then transferred to the OR table in supine position. The patient was positioned in the right lateral decubitus position, supported by pelvic supports. Bony prominences of the right lower extremity were well padded. The left lower extremity was then prepped and draped in usual sterile fashion. A timeout was performed. The level of the greater trochanter was palpated, a 10 cm curvilinear posterior incision was made, followed by Bovie dissection. The hip abductor was sharply split in line with its fibers with a curved Mohamud scissors, incising the fascia over the gluteus ed also. The Charnley retractors were then positioned, making sure all not to go too deeply, to protect the sciatic nerve. The bursa over the greater trochanter was excised with Bovie electrocautery. The left hip was then internally rotated, putting the short external rotators on stretch. These were taken down from the insertion point with the Bovie cautery, starting from lesser trochanter and going small to the femoral neck. The capsule along the posterior femoral neck and head was then T'ed, giving exposure to the fractured femoral head/neck. The head was then removed with a power corkscrew, and cutting the ligamentum teres. The head was measured and a size what 48 mm diameter was chosen. The acetabulum was washed out of any bone fragments, and a trial head was placed giving a good fit. Next, the exposed fractured femoral neck was cleaned up with a rongeur, a box truck driver was then used to remove the lateral bone. The canal finder was then inserted. We then started broaching with a press-fit broaches from the Biomet Echo tray. Starting with a press-fit 7, and moving up to a press-fit 10, keeping the appropriate anteversion. There was a small crack at the inferior neck extending to the level of the lesser trochanter. The trial stem was well fixed with no toggling. The broach was then removed. The canal was irrigated out and suctioned. A Kinamed super cables and passed from the greater trochanter and the femoral neck, just above the lesser trochanter. This was appropriately tensioned, low tension this patient had very thin bone. The Biomet press-fit Echo lateralized stem was then opened, using a size 10 pressfit stem, the implant was tapped in place, making sure to keep the correct anteversion. Once well positioned, we trialed with a 48 mm diameter trial head , and in neutral stem. Stability was checked along with leg length. The leg lengths felt equal, the patient had good extension of the left lower extremity, is able to flex the hip, adduct, and internally rotated up to 60 degrees before the hip started subluxing out. The trial components removed. The acetabulum was copiously irrigated with normal saline once again making sure it was well cleaned out. Next the 48 mm unipolar head was opened with a + 0 neck length. This assembled and tapped in place. The hip was reduced, and stability was checked once again. We had good stability. The capsule was then closed with 2-0 FiberWire figure of 8 sutures. The short external rotators were reattached to the bone using the FiberWire. The leg was in an adducted position placed, and went to place it on the Mohamud stand when the implants are without posteriorly and proximally. Soft tissue was taken down, stability felt more lax now. The head and neck was being tapped up to remove to trial a different size, and the stem pulled out. The patient fairly thin bone, it was decided to cement the implant in place. A size 11 broach was used, to create a cement mantle. We then mixed 2 bags of [place] cement. A cement restrictor was then placed. Cement was injected into the canal, and the size 10 stem was then positioned. Unfortunately the anteversion was lost, stem was pulled out and repositioned after packing in all cement; tapping the implant in place, while maintaining anteversion. Once the cement dried, we then trialed with the 48 head and standard neck length. This seemed still unstable. We then went to a +3 neck length, the patient's leg lengths still felt fairly equal, and had much better stability. The hip was not subluxing out until past 60 degrees, with abduction and hip flexion. The 48 mm head was reused, this time with a +3 neck length. This was tapped in place over the stem. The implant reduced into the acetabulum. I checked leg lengths and stability once again. The wounds irrigated with normal saline using pulse lavage. The short external rotators were reattached with the FiberWire. The tensor fascia along with the gluteus fascia was closed with FiberWire [id number] sutures. Once again irrigating the wound with pulse lavage. The deep fat layer was closed with 0 Vicryl, subcutaneous tissues with 2-0 Vicryl simple sutures, and finally the skin was closed with barrington. Sterile dressings were applied. A hip abduction wedge was in place between the patient's legs. She was then rolled over into supine position and transferred back onto the hospital bed where she was extubated and taken to the recovery room in stable condition.
--- NOTE | 2016-06-18 15:44 | Consult Note ---
Date of Encounter: 06/18/16 Time of Encounter: 15:20 Assessment & Recommendation (1) Suicidal thoughts Current visit: Yes Status: Acute Assessment & Recommendation: Patient is not suicidal. There is no need for a 1:1 sitter for suicide concern. History of Present Illness Patient: new to practice Requesting Physician: Gorge Parks MD Reason for consult: Suicidal Ideation History of present illness: Ms. Carvalho is a 86 year old female that I was requested to see secondary to a staff member thinking that she made a suicidal comment. I attempted to see the patient 2 days ago, she was heavily medicated with morphine secondary to her fractured hip. Today I went back to follow-up and she was sitting up in a chair and much more alert. I asked her if she remembered me and she said no, with a smile. I explained to her that I tried to see her the other day but that she seemed rather tired. She told me "they had me on so much medication, I couldn't thinking straight". When I told her I was a psychiatrist and that they had wanted me to come see her secondary to concern that she was having thoughts of harming or killing herself, she looked at me in horror. I asked her she recalled saying anything to staff about that upon her admission. She states that she was irritable and angry when she was admitted secondary to her fall and fracturing her hip. She states that she was angry at her sister because her sister wanted her to get another waffle for her. And is doing so, that is when she fell and broke her hip. She tells me that she would never do anything to hurt herself. She tells me she has a lot of stress in her life currently; that has a daughter with stage IV cancer. But that her daughter, who has 2 children, as well as a son, with 2 children, need her. She also is very moravian and goes to rastafari frequently; strong in her genoveva. Killing herself is against her moravian belief. She states that when you get to be her age, you think about dying every day, but not killing yourself. She states that she has had a history of depression, recently. That she is being treated for it as well as anxiety. These have worsened since the of her but also with the diagnosis of her daughter with advanced cancer. She states she still would never do anything to harm herself. She gets medications from her primary care doctor for the depression seems to have helped some. She is goal oriented to the future in getting out of the hospital, undergoing rehab and continuing to be present for her children and grandchildren's life. She tells me that she shares a home with her sister since she was and her sister is also . It is their family home that their mother left them. She states that she eventually wants to get out of that situation because she finds her sister intolerable at times. She states that she is safe in the house, but that she knows that her sisters irritability is part of her low mood at times. She denies any suicidal/homicidal ideation, she denies any auditory/visual hallucinations. She denies feeling depressed at this time stating she is surprised how good she feels after surgery and optimistic about the therapy. Her energy is fine, she is not hopeless and helpless, anxiety level is fine, she has no signs of delirium or psychosis. She does seem to have some memory difficulties at times trying to think of names that eventually come to her, but this is part of the normal aging process. Patient is well connected in the community with her rastafari and her family. She has much to live for in life; having plenty of friendship and support around her. She does not appear to be suicidal and is no longer need of a one-to-one sitter for safety. CC: Gorge Parks MD Past Med Surg Social Fam HX - Past Medical History Medical history: arthritis, hypertension, myocardial infarction, renal disease, seizures - Past Psychiatric History Psychiatric history: Reports: anxiety, depression Past psychiatric history details: Gets medications from her PCP Family psychiatric history: No Family History of Suicide: None - Past Surgical History Surgical History: hip replacement - Social History Smoking Status: Former smoker Smokeless Tobacco Status: No Alcohol use: none Drug use: none - Family History Mother Living Status: Age at : 97 Father Living Status: Age at : 87 Cause of : aneurysm Daughter Living Status: Still Living Hx Family Respiratory Disorders: Yes Hx Family Cancer: Yes Hx Family Neurologic Disorders: Yes Hx Family Medical Disorders: Yes Medications & Allergies Clopidogrel [Plavix] 75 mg PO DAILY 06/15/16 [History] Acetaminophen [Tylenol] 325 mg PO Q6HR PRN 06/16/16 [History] Atorvastatin Calcium 80 mg PO HS 06/16/16 [History] Carvedilol [Coreg] 6.25 mg PO BID 06/16/16 [History] Cholecalciferol (Vitamin D3) [Vitamin D] 2,000 unit PO DAILY 06/16/16 [History] Dicyclomine [Bentyl] 10 mg PO QID 06/16/16 [History] Ferrous Sulfate [Iron] 325 mg PO BID 06/16/16 [History] Fluticasone Propionate Nasal [Flonase] 1 spray NS DAILY PRN 06/16/16 [History] Lamotrigine [Lamictal] 100 mg PO BID 06/16/16 [History] Lisinopril [Lisinopril] 2.5 mg PO DAILY 06/16/16 [History] Loratadine [Allergy Relief] 10 mg PO DAILY PRN 06/16/16 [History] Paroxetine [Paxil] 20 mg PO DAILY 06/16/16 [History] Tramadol HCl [Ultram] 50 mg PO Q6H PRN 06/16/16 [History] Allergies aspirin Adverse Reaction (Verified 06/16/16 11:53) Rash Review of Systems Musculoskeletal: Reports: joint pain (Hip fracture repair) Psychiatric: Reports: depression, anxiety Mental Status Exam Patient orientation: Yes Person, Yes Time, Yes Place, Yes Circumstance Level of alertness: Alert Patient appearance: Appropriate, Well Groomed, Well-nourished Additional observations: Sitting up in a bed side chair wearing a surgical gown. Behavior: calm, cooperative Psychomotor activity: Normal Eye contact: Maintains Eye Contact Mood description: Euthymic/stable Affect description: congruent with mood Speech pattern: Normal rate, Normal rhythm, Normal tone, Appropriate Speech volume: Normal Thought process: Intact, Logical, Linear, Goal Oriented Thought content: Yes Intact Attention span: Capable of Focused Attention Memory description: Immediate Intact, Recent Intact, Remote Impaired Patient reliability: Reliable Historian Intelligence estimate: Average Judgment: Good Insight: Full Results - Vital Signs Vital signs: Temp Pulse Resp BP Pulse Ox 98.5 F 77 14 96/49 99 06/18/16 03:05 06/18/16 15:00 06/18/16 15:00 06/18/16 15:00 06/18/16 03:05 - Labs Labs: Laboratory Last Values WBC 10.1 K/mcL (4.3-11.1) 06/17/16 00:38 RBC 3.25 M/mcL (3.82-4.97) L 06/17/16 00:38 Hgb 8.8 g/dL (11.5-15.4) L D 06/18/16 04:50 Hct 27.2 % (35.3-44.9) L 06/18/16 04:50 MCV 96.0 fL (83.0-100.0) D 06/17/16 00:38 MCH 32.0 pg (28.0-33.3) 06/17/16 00:38 MCHC 33.3 g/dL (31.6-35.5) 06/17/16 00:38 RDW 15.4 % (11.5-14.5) H 06/17/16 00:38 Plt Count 161 K/mcL (140-400) 06/17/16 00:38 MPV 9.9 fL (9.4-12.4) 06/17/16 00:38 Immature Gran % 0.4 % (0-4) 06/17/16 00:38 Seg Neutrophils % 85.8 % 06/17/16 00:38 Lymphocytes % 6.8 % 06/17/16 00:38 Monocytes % 5.7 % 06/17/16 00:38 Eosinophils % 1.2 % 06/17/16 00:38 Basophils % 0.1 % 06/17/16 00:38 Neutrophils # 8.7 K/mcL (1.6-8.9) 06/17/16 00:38 Lymphocytes # 0.7 K/mcL (0.6-4.6) 06/17/16 00:38 Monocytes # 0.6 K/mcL (0.0-1.3) 06/17/16 00:38 Eosinophils # 0.1 K/mcL (0.0-0.6) 06/17/16 00:38 Basophils # 0.0 K/mcL (0.0-0.2) 06/17/16 00:38 Immature Plt Fraction 3.1 % (1.1-6.1) 06/17/16 00:38 PT 11.3 Seconds (9.4-12.1) 06/16/16 13:15 INR 1.0 06/16/16 13:15 APTT 25.5 Seconds (26.0-36.0) L 06/16/16 13:15 Sodium 134 mEq/L (136-145) L 06/18/16 04:50 Potassium 3.9 mEq/L (3.5-4.5) 06/18/16 04:50 Chloride 102 mEq/L (98-109) 06/18/16 04:50 Carbon Dioxide 22 mEq/L (19-29) 06/18/16 04:50 BUN 18 mg/dL (7-20) 06/18/16 04:50 Creatinine 1.34 mg/dL (0.57-1.11) H 06/18/16 04:50 Est GFR ( Amer) 45 (> 60) L 06/18/16 04:50 Est GFR (Non-Af Amer) 37 (> 60) L 06/18/16 04:50 BUN/Creatinine Ratio 13 (6-26) 06/18/16 04:50 Glucose 135 mg/dL (70-99) H 06/18/16 04:50 Calculated Osmolality 282 (280-300) 06/18/16 04:50 Calcium 7.9 mg/dL (8.6-10.8) L 06/18/16 04:50 Blood Type A POSITIVE 06/16/16 04:45 Antibody Screen NEGATIVE 06/16/16 04:45 Crossmatch See Detail 06/16/16 04:45 - Impressions Impressions Hip X-Ray 06/17/16 19:48 IMPRESSION: 1. Left hip arthroplasty with no immediate complications. D/ / Marck Bazan MD / Marck Bazan MD Interpreting Provider: Marck Bazan MD Consult Discharge Plan - Plan Referrals: Starr Alcantara PAC [Physician Roofing Laborer] - 07/01/16 1:00 pm Isrrael Quintero MD [Primary Care Provider] - 07/15/16 2:45 pm
[2016-06-19 06:38] LABS: Hematocrit 21.5 % (35.3-44.9)
[2016-06-19 06:55] LABS: Calcium 8.1 mg/dL (8.6-10.8); Potassium 3.5 mEq/L (3.5-4.5)
--- NOTE | 2016-06-19 08:55 | Internal Med Progress Note ---
Date of Encounter: 06/19/16 Time of Encounter: 08:53 - Assessment and plan (1) Closed left hip fracture Current Visit: Yes Status: Acute Assessment and plan: Status post left hip arthroplasty. Continue supportive care. Pain control. Continue physical therapy. kiln worker consultation to arrange placement for the patient Qualifiers: Encounter type: initial encounter Qualified Code(s): S72.002A - Fracture of unspecified part of neck of left femur, initial encounter for closed fracture (2) Acute blood loss anemia Current Visit: Yes Status: Acute Assessment and plan: Hemoglobin 7 today. Will transfuse 2 units packed red blood cells. Patient at moderate risk for complications (3) CKD (chronic kidney disease) Current Visit: Yes Status: Chronic Assessment and plan: Creatinine slightly worse today. Will gently hydrate. Follow renal function Qualifiers: Chronic kidney disease stage: stage 3 (moderate) Qualified Code(s): N18.3 - Chronic kidney disease, stage 3 (moderate) (4) Hypertension Current Visit: Yes Status: Chronic Assessment and plan: Controlled. Qualifiers: Hypertension type: essential hypertension Qualified Code(s): I10 - Essential (primary) hypertension (5) Seizure disorder Current Visit: Yes Status: Chronic Assessment and plan: Continue Lamictal (6) Suicidal thoughts Current Visit: Yes Status: Acute Assessment and plan: Psychiatric consult appreciated. Patient does not appear to be suicidal at this time. (7) Macrocytic anemia with vitamin B12 deficiency Current Visit: Yes Status: Chronic Assessment and plan: On vitamin B-12 supplementation - Subjective Interval history: Pain is well controlled. Denies any new complaints. Comfortably sitting up in chair and eating breakfast at this time. No melena or hematochezia. - Constitutional Vitals: Temp Pulse Resp BP Pulse Ox 98.5 F 81 16 113/57 97 06/19/16 07:10 06/19/16 07:10 06/19/16 07:10 06/19/16 07:10 06/19/16 07:10 General appearance: Present: cooperative, A&O X 3, no acute distress, answers questions appropriately - Respiratory Respiratory exam: Present: CTAB. Absent: accessory muscle use, rales, rhonchi, wheezes - Cardiovascular Cardiovascular exam: Present: RRR, +S1, +S2. Absent: diastolic murmur, gallop, rubs, systolic murmur - GI/Abdominal GI/Abdominal exam: Present: normal bowel sounds, soft, no peritoneal signs. Absent: distended, tenderness - Extremities Exam Extremities exam: Present: tenderness (Left hip region), warm, radial pulses palpable and symetrical. Absent: calf tenderness, cyanotic, pedal edema Internal Medicine: Result - Labs CBC & Chem 7: 06/19/16 05:43 06/19/16 05:43 Labs: Short CBC 06/19/16 Range/Units 05:43 Hgb 7.0 L D (11.5-15.4) g/dL Hct 21.5 L (35.3-44.9) % BMP 06/19/16 05:43 Sodium 133 L Potassium 3.5 Chloride 101 Carbon Dioxide 22 BUN 29 H D Creatinine 1.83 H Glucose 114 H Calcium 8.1 L - ABG Interpretation ABG results: PT/INR, D-dimer PT 11.3 Seconds (9.4-12.1) 06/16/16 13:15 - VTE Documentation of Mechanical Device: Intermittent pneumatic compression device Consult Discharge Plan - Plan Referrals: Isrrael Quintero MD [Primary Care Provider] - 07/15/16 2:45 pm - Attending Attestation This document has been at least partially created by [employer] recognition technology by Dr. Parks. Errors in grammar, wording or other phrases may exist. If errors are found after the documentation is signed, they will be addressed individually in the addendum section of this document when appropriate.
[2016-06-19] MEDS: lamoTRIgine 100 MG TABLET PO SCH ×2 (08:58→20:36)
[2016-06-19] MEDS: Multivit/Ca/Min/Fe/FA 1 TAB TABLET PO SCH (08:58)
[2016-06-19] MEDS: Ascorbic Acid 500 MG TABLET PO SCH ×2 (08:58→18:52)
[2016-06-19] MEDS: Cyanocobalamin (B-12) 1,000 MCG TABLET PO SCH (08:59)
[2016-06-19] MEDS: *HR* Enoxaparin 30 MG/0.3 ML SYRINGE SQ SCH (08:59)
[2016-06-19] MEDS ORDERED: 0.9 % Sodium Chloride 1,000 ML IVC SCH (09:00)
[2016-06-19] MEDS ORDERED: 0.9 % Sodium Chloride 250 ML ONE (12:59)
--- NOTE | 2016-06-19 13:48 | Orthopedics Progress Note ---
Date of Encounter: 06/19/16 Time of Encounter: 13:15 - Assessment and Plan (1) Closed left hip fracture Current Visit: Yes Status: Acute Dressings c/d/i. Dressings to be changed today. Continue pain control per hospitalist. Continue therapy, WBAT. Follow hip precautions. Will f/up with Starr Alcantara PA-C in [facility] in 2 weeks. Qualifiers: Encounter type: initial encounter Qualified Code(s): S72.002A - Fracture of unspecified part of neck of left femur, initial encounter for closed fracture Subjective Principal diagnosis: POD#2 S/P - left hip hemiarthroplasty. Interval history: Patient doing well today with no complaints. States she has very little pain in hip. Denies calf pain. Objective Vital signs: Vital Signs Temp Pulse Resp BP Pulse Ox 06/19/16 13:30 97.6 F 72 15 107/50 97 06/19/16 13:15 97.7 F 75 15 97/51 99 06/19/16 11:57 98.1 F 79 16 101/46 92 L 06/19/16 07:10 98.5 F 81 16 113/57 97 06/19/16 05:03 98.3 F 78 17 116/54 94 L 06/19/16 01:33 98.4 F 81 16 103/63 94 L 06/18/16 21:57 98.6 F 70 17 114/59 97 06/18/16 15:00 77 14 96/49 Intake and Output 06/18/16 06/19/16 06/19/16 23:59 07:59 15:59 Intake Total 120 / 120 Balance 120 / 120 Intake: Oral 120 / 120 Blood Product 0 / 0 Rbcs Leuko Poor As-1 0 / 0 Unit [id number] Other: Meal Breakfast Percent of Meal Consumed 80% Incision: clean and dry (dressings clean and dry, good dorsiflexion of foot, no calf pain with palpation) - Labs CBC & BMP: 06/19/16 05:43 06/19/16 05:43 Labs: Abnormal lab results RBC 3.25 M/mcL (3.82-4.97) L 06/17/16 00:38 Hgb 7.0 g/dL (11.5-15.4) L D 06/19/16 05:43 Hct 21.5 % (35.3-44.9) L 06/19/16 05:43 RDW 15.4 % (11.5-14.5) H 06/17/16 00:38 APTT 25.5 Seconds (26.0-36.0) L 06/16/16 13:15 Sodium 133 mEq/L (136-145) L 06/19/16 05:43 BUN 29 mg/dL (7-20) H D 06/19/16 05:43 Creatinine 1.83 mg/dL (0.57-1.11) H 06/19/16 05:43 Est GFR ( Amer) 32 (> 60) L 06/19/16 05:43 Est GFR (Non-Af Amer) 26 (> 60) L 06/19/16 05:43 Glucose 114 mg/dL (70-99) H 06/19/16 05:43 Calcium 8.1 mg/dL (8.6-10.8) L 06/19/16 05:43 - VTE Documentation of Mechanical Device: Intermittent pneumatic compression device Consult Discharge Plan - Plan Referrals: Starr Alcantara, ERICA [Physician Type Mapper] - 07/01/16 1:00 pm Isrrael Quintero MD [Primary Care Provider] - 07/15/16 2:45 pm
[2016-06-19] MEDS ORDERED: 0.9 % Sodium Chloride 500 ML ONE (22:15)
[2016-06-19] MEDS: Acetaminophen 325 MG TABLET PO PRN (23:20)
[2016-06-20 06:32] LABS: Basophils % 0.3 %; Eosinophils # 0.4 K/mcL (0.0-0.6); Eosinophils % 5.5 %; Hematocrit 29.7 % (35.3-44.9); Hemoglobin 9.9 g/dL (11.5-15.4); Lymphocytes # 0.7 K/mcL (0.6-4.6); Lymphocytes % 9.7 %; Mean Corpuscular HGB Conc 33.3 g/dL (31.6-35.5); Mean Corpuscular Hemoglobin 31.1 pg (28.0-33.3); Mean Corpuscular Volume 93.4 fL (83.0-100.0); Monocytes # 0.5 K/mcL (0.0-1.3); Monocytes % 7.5 %; Neutrophils # 5.4 K/mcL (1.6-8.9); Platelet Count 157 K/mcL (140-400); Red Blood Count 3.18 M/mcL (3.82-4.97); Red Cell Distribution Width 15.5 % (11.5-14.5)
[2016-06-20 06:49] LABS: Calcium 8.2 mg/dL (8.6-10.8); Potassium 3.5 mEq/L (3.5-4.5)
[2016-06-20] MEDS: Ascorbic Acid 500 MG TABLET PO SCH (07:54)
[2016-06-20] MEDS: *HR* Enoxaparin 30 MG/0.3 ML SYRINGE SQ SCH (07:55)
[2016-06-20] MEDS: Cyanocobalamin (B-12) 1,000 MCG TABLET PO SCH (09:08)
[2016-06-20] MEDS: Multivit/Ca/Min/Fe/FA 1 TAB TABLET PO SCH (09:08)
[2016-06-20] MEDS: lamoTRIgine 100 MG TABLET PO SCH (09:08)
--- NOTE | 2016-06-20 10:39 | Discharge Summary ---
Date of Encounter: 06/20/16 Time of Encounter: 10:35 - Discharge Diagnosis (1) Closed left hip fracture Priority: Primary Status: Acute Qualifiers: Encounter type: initial encounter Qualified Code(s): S72.002A - Fracture of unspecified part of neck of left femur, initial encounter for closed fracture (2) Acute blood loss anemia Priority: Secondary Status: Acute (3) CKD (chronic kidney disease) Priority: Secondary Status: Chronic Qualifiers: Chronic kidney disease stage: stage 3 (moderate) Qualified Code(s): N18.3 - Chronic kidney disease, stage 3 (moderate) (4) Hypertension Priority: Secondary Status: Chronic Qualifiers: Hypertension type: essential hypertension Qualified Code(s): I10 - Essential (primary) hypertension (5) Seizure disorder Priority: Secondary Status: Chronic (6) Suicidal thoughts Priority: Secondary Status: Resolved (7) Macrocytic anemia with vitamin B12 deficiency Priority: Secondary Status: Chronic - Discharge Medications Prescriptions: OxyCODONE Immed Rel [Roxicodone 5 MG] 5 mg PO Q4HR PRN #10 tablet PRN Reason: Severe Pain 7-10 Enoxaparin [Lovenox] 30 mg SQ DAILY@0700 #10 syringe Home Medications: Clopidogrel [Plavix] 75 mg PO DAILY 06/15/16 [History] Acetaminophen [Tylenol] 325 mg PO Q6HR PRN 06/16/16 [History] Atorvastatin Calcium 80 mg PO HS 06/16/16 [History] Carvedilol [Coreg] 6.25 mg PO BID 06/16/16 [History] Cholecalciferol (Vitamin D3) [Vitamin D3] 2,000 unit PO DAILY 06/16/16 [History] Dicyclomine [Bentyl] 10 mg PO QID 06/16/16 [History] Ferrous Sulfate [Iron] 325 mg PO BID 06/16/16 [History] Fluticasone Propionate Nasal [Flonase] 1 spray NS DAILY PRN 06/16/16 [History] Lamotrigine [Lamictal] 100 mg PO BID 06/16/16 [History] Lisinopril 2.5 mg PO DAILY 06/16/16 [History] Loratadine [Allergy Relief] 10 mg PO DAILY PRN 06/16/16 [History] Paroxetine [Paxil] 20 mg PO DAILY 06/16/16 [History] Cyanocobalamin (B-12) [Vitamin B12] 1,000 mcg PO DAILY #0 tablet 06/20/16 [Rx] Enoxaparin [Lovenox] 30 mg SQ DAILY@0700 #10 syringe 06/20/16 [Rx] Multivit/Ca/Min/Fe/FA [Thera M Plus] 1 tab PO DAILY tablet 06/20/16 [Rx] OxyCODONE Immed Rel [Roxicodone 5 MG] 5 mg PO Q4HR PRN #10 tablet 06/20/16 [Rx] Tramadol HCl [Ultram] 50 mg PO Q6H PRN #20 06/20/16 [Rx] Allergies/Adverse Reactions: Allergies aspirin Adverse Reaction (Verified 06/16/16 11:53) Rash Date of admission: 06/15/16 21:58 Primary care physician: Isrrael Quintero MD Consults: 06/17/16 21:27 Consult to Nurse Navigator [CONS] Routine Comment: ortho navigator Consult to Occupational Therapy [CONS] Routine Comment: Evaluate, develop and implement POC Consult to Physical Therapy [CONS] Routine Comment: Evaluate, develop and implement POC Consult to Assistant Center Director [CONS] Routine Reason for SW Consult: post op joint replacement RT Post Op Consult [CONS] Routine Discharging clinician: Gorge Parks Anticipated date of discharge: 06/20/16 - Patient Status Disposition: Transfer SNF Condition: Fair Functional capacity at discharge: uses cane/walker Overall status at discharge: patient is progressing back to baseline - Discharge Instructions Instructions: Anemia (GEN) Follow Up With: tSarr Alcantara PAC [Physician Sand Buffer] - 07/01/16 1:00 pm Isrrael Quintero MD [Primary Care Provider] - 07/15/16 2:45 pm - Diet and Activity Activity: as per physical therapy Diet: low fat, low cholesterol, low salt diet Hospital course: Ms. Carvalho is a 86 year old female with history of essential hypertension, chronic kidney disease, chronic anemia, seizure disorder who was admitted here after a fall resulting in a closed left hip fracture. Patient underwent left hip arthroplasty and has since been recovering well. She has been receiving physical therapy and has been recommended placement to skilled rehabilitation. She will be discharged to skilled rehabilitation and she has a bed available. During her stay here she did describe some suicidal ideation. Psychiatric was consulted. Patient did not require any further management and her symptoms have subsided. She also developed acute blood loss anemia due to perioperative blood loss. This has since improved. She did require 4 units of packed red blood cell transfusion. At this time, patient is clinically stable for discharge to skilled rehabilitation. She will continue to receive physical therapy there. - Time Spent with Patient Total time spent providing and/or coordinating discharge services: Greater than 30 minutes (35 min) - Constitutional Vitals: Temp Pulse Resp BP Pulse Ox 97.9 F 56 16 142/62 97 06/20/16 06:36 06/20/16 06:36 06/20/16 06:36 06/20/16 06:36 06/20/16 06:36 General appearance: Present: cooperative, A&O X 3, no acute distress, answers questions appropriately - Respiratory Respiratory exam: Present: CTAB. Absent: accessory muscle use, rales, rhonchi, wheezes - Cardiovascular Cardiovascular exam: Present: RRR, +S1, +S2. Absent: diastolic murmur, gallop, rubs, systolic murmur - GI/Abdominal GI/Abdominal exam: Present: normal bowel sounds, soft, no peritoneal signs. Absent: distended, tenderness - Extremities Exam Extremities exam: Present: tenderness (Left hip region), warm, radial pulses palpable and symetrical. Absent: calf tenderness, cyanotic, pedal edema - VTE Documentation of Mechanical Device: Intermittent pneumatic compression device
--- NOTE | 2016-06-20 10:43 | Physician Discharge Referral ---
ExtendedCare Referral Info Transfer To: SNF Provider in Charge after Transfer: PCP Institutional Level of Care: Skilled - Diagnosis (1) Closed left hip fracture Priority: Primary Status: Acute (2) Acute blood loss anemia Priority: Secondary Status: Acute (3) CKD (chronic kidney disease) Priority: Secondary Status: Chronic (4) Hypertension Priority: Secondary Status: Chronic (5) Seizure disorder Priority: Secondary Status: Chronic (6) Suicidal thoughts Priority: Secondary Status: Resolved (7) Macrocytic anemia with vitamin B12 deficiency Priority: Secondary Status: Chronic Prognosis: Fair Aware of Diagnosis: Patient Aware of Prognosis: Patient - Transfer Medications Prescriptions: OxyCODONE Immed Rel [Roxicodone 5 MG] 5 mg PO Q4HR PRN #10 tablet PRN Reason: Severe Pain 7-10 Enoxaparin [Lovenox] 30 mg SQ DAILY@0700 #10 syringe Home Medications: Clopidogrel [Plavix] 75 mg PO DAILY 06/15/16 [History] Acetaminophen [Tylenol] 325 mg PO Q6HR PRN 06/16/16 [History] Atorvastatin Calcium 80 mg PO HS 06/16/16 [History] Carvedilol [Coreg] 6.25 mg PO BID 06/16/16 [History] Cholecalciferol (Vitamin D3) [Vitamin D3] 2,000 unit PO DAILY 06/16/16 [History] Dicyclomine [Bentyl] 10 mg PO QID 06/16/16 [History] Ferrous Sulfate [Iron] 325 mg PO BID 06/16/16 [History] Fluticasone Propionate Nasal [Flonase] 1 spray NS DAILY PRN 06/16/16 [History] Lamotrigine [Lamictal] 100 mg PO BID 06/16/16 [History] Lisinopril 2.5 mg PO DAILY 06/16/16 [History] Loratadine [Allergy Relief] 10 mg PO DAILY PRN 06/16/16 [History] Paroxetine [Paxil] 20 mg PO DAILY 06/16/16 [History] Cyanocobalamin (B-12) [Vitamin B12] 1,000 mcg PO DAILY #0 tablet 06/20/16 [Rx] Enoxaparin [Lovenox] 30 mg SQ DAILY@0700 #10 syringe 06/20/16 [Rx] Multivit/Ca/Min/Fe/FA [Thera M Plus] 1 tab PO DAILY tablet 06/20/16 [Rx] OxyCODONE Immed Rel [Roxicodone 5 MG] 5 mg PO Q4HR PRN #10 tablet 06/20/16 [Rx] Tramadol HCl [Ultram] 50 mg PO Q6H PRN #20 06/20/16 [Rx] Allergies/Adverse Reactions: Allergies aspirin Adverse Reaction (Verified 06/16/16 11:53) Rash - Respiratory Orders Smoking Cessation: Smoking cessation has been advised. For more information, call the [place] Tobacco Quit Line at 6-460-QFAX-NOW. - Ancillary Orders May use pressure relief devices daily prn, May consult with Dentist, Carpet Cleaning Technician, Precision Lens Generator PRN - Advance Directives Code Status: Full Code - Mobility Orders Ambulate (per PT) - Rehabiliation Orders Rehab Potential: Fair Rehab Orders: Evaluation for Physical Therapy, Evaluation for Occupational Therapy - Diet Orders Cardiac CERTIFICATION: I certify that the transfer of the above named patient to an Extended Care Facility is necessary for the continuing treatment of the diagnosis listed. The above information is true and accurate reflection of patient's current condition. Confidential - Redisclosure prohibited without a patient's written consent.
[2016-06-20 11:20] VITALS: BP 124/55
[2016-06-20] MEDS: Acetaminophen 325 MG TABLET PO PRN (12:32)
== END 2016-06-20 12:47 | DRG 470 ==
LOC: EMEROO 18:46 → 3NENU 18:46 → SUATTDRO 21:58
PROVIDERS: ADMIT Internal Medicine; ATTEND Internal Medicine